=== PATIENT | male | born 1995 | race Caucasian/White ===

== ENCOUNTER → 2017-06-08 | Outpatient (CLI) | payer OTHER ==
--- NOTE | 2017-06-08 08:45 | DIAGNOSTIC IMAGING REPORT ---
LEFT ELBOW 3 VIEWS CLINICAL HISTORY: Fall with left elbow pain. FINDINGS: 3 views of the left elbow are obtained. No prior studies are available for comparison at the time of dictation. The skeletal structures are well mineralized. There is no convincing radiographic evidence of fracture. The joint spaces appear maintained. No joint effusion is identified. The overlying soft tissues are within normal limits. IMPRESSION: There is no convincing radiographic evidence of left elbow fracture. Electronically signed by: Rony Rossi M.D. 06/08/2017 8:44 AM Dictated Date/Time: 06/08/2017 8:42 AM
== END | disposition home or self-care (01) ==
LOC: C.RDSM 08:25
PROVIDERS: ATTEND Internal Medicine
DX: M25.522 Pain in left elbow (principal)